=== PATIENT | male | born 1955 | race Caucasian/White ===

== ENCOUNTER 2020-04-27 09:40 | Emergency (ER) | payer OTHER ==
[~2020-04-27] VITALS: Ht 170.2 cm; Wt 63.0 kg
[2020-04-27] MEDS ORDERED: ASPIRIN 81MG TABLET PO ONE (10:30)
[2020-04-27] MEDS ORDERED: NITROGLYCERIN 0.4MG TABLET SL SL PRN (10:30)
[2020-04-27 10:33] LABS: BASOPHILS % 0.3 % (0.0-2.0); EOSINOPHILS % 0.8 % (0.0-5.0); HEMATOCRIT. 45.4 % (42.0-52.0); HEMOGLOBIN. 15.7 g/dL (14.0-18.0); LYMPHOCYTES % 11.1 % (20.0-50.0); MEAN CORPUSCULAR HEMOGLOBIN 31.9 pg (28.0-32.0); MEAN CORPUSCULAR VOLUME 92.1 fL (80.0-94.0); MEAN PLATELET VOLUME 8.4 fl (7.4-10.4); MONOCYTES % 6.9 % (2.0-8.0); NEUTROPHILS % 80.9 % (40.0-76.0); PLATELET 228 x1000/uL (130-400); RED BLOOD CELL COUNT 4.93 mill/uL (4.7-6.1); RED CELL DISTRIBUTION WIDTH 13.2 % (11.6-14.6)
[2020-04-27 10:39] LABS: CHLORIDE 106 mEq/L (98-107)
[2020-04-27 14:29] VITALS: BP 126/80
== END 2020-04-27 14:39 | disposition short-term general hospital (02) ==
LOC: ER 09:49 → CANBEDREQ 16:47
DX: I20.0 Unstable angina (principal); I10 Essential (primary) hypertension; Z86.73 Personal history of transient ischemic attack (TIA), and cerebral infarction without residual deficits
CPT/HCPCS: 36415; 71045; 80053; 83880; 84484; 85025; 93005; 99285; Z7610

== ENCOUNTER 2024-05-31 12:03 | Inpatient (IN) | payer OTHER, MEDICARE ==
[~2024-05-31] VITALS: Ht 180.3 cm; Wt 61.7 kg
[2024-05-31 12:06] VITALS: O2SAT 97
[2024-05-31] MEDS ORDERED: DICYCLOMINE 10 MG/5 ML ORAL SYR PO STA (12:32)
[2024-05-31 12:35] LABS: BASOPHILS % 0.7 % (0.0-2.0); EOSINOPHILS % 1.6 % (0.0-5.0); HEMATOCRIT. 41.3 % (42.0-52.0); HEMOGLOBIN. 13.9 g/dL (14.0-18.0); MEAN CORPUSCULAR HEMOGLOBIN 31.1 pg (28.0-32.0); MEAN CORPUSCULAR HGB CONC 33.7 g/dL (31.0-37.0); MEAN CORPUSCULAR VOLUME 92.3 fL (80.0-94.0); MEAN PLATELET VOLUME 8.1 fl (7.4-10.4); MONOCYTES % 9.2 % (2.0-8.0); NEUTROPHILS % 68.5 % (40.0-76.0); PLATELET 227 x1000/uL (130-400); RED BLOOD CELL COUNT 4.48 mill/uL (4.7-6.1); RED CELL DISTRIBUTION WIDTH 13.6 % (11.6-14.6)
[2024-05-31] MEDS: ASPIRIN 81MG TABLET PO ONE (12:38)
[2024-05-31 12:43] LABS: CHLORIDE 106 mEq/L (98-107); POTASSIUM 4.2 mEq/L (3.5-5.1); SODIUM 140 mEq/L (136-145)
[2024-05-31 12:44] LABS: CALCIUM 9.3 mg/dL (8.7-10.4); CARBON DIOXIDE 31 mEq/L (21-32)
[2024-05-31 12:49] LABS: CREATININE 0.9 mg/dL (0.6-1.3); GLUCOSE 108 mg/dL (70-105); UREA NITROGEN BLOOD 14 mg/dL (9-23)
[2024-05-31] MEDS: MAGNESIUM/ALUMINUM HYDROXIDE/SIMETHICONE 30ML UDC PO STA (12:52)
[2024-05-31] MEDS: ONDANSETRON 4MG ODT PO STA (12:53)
[2024-05-31 12:54] LABS: TROPONIN I HIGH SENSITIVITY < 4 ng/L (3.0-53)
[2024-05-31] MEDS: FAMOTIDINE 20MG TABLET PO ONE (12:54)
[2024-05-31] MEDS: DICYCLOMINE HCL 10MG CAPSULE PO NR (12:55)
[2024-05-31 13:00] LABS: ALANINE AMINOTRANSFERASE 12 IU/L (10-49); ALBUMIN 4.3 g/dL (3.2-4.8); ASPARTATE AMINOTRANSFERASE 19 IU/L (<34); BILIRUBIN DIRECT 0.2 mg/dL (<=3.0); BILIRUBIN TOTAL 0.6 mg/dL (0.1-1.0); PROTEIN TOTAL 7.2 g/dL (6.0-8.3)
[2024-05-31 15:34] LABS: TROPONIN I HIGH SENSITIVITY < 4 ng/L (3.0-53)
[2024-05-31] MEDS ORDERED: MAGNESIUM/ALUMINUM HYDROXIDE/SIMETHICONE 30ML UDC PO PRN (18:45)
[2024-05-31] MEDS ORDERED: ACETAMINOPHEN 325MG TABLET PO PRN ×2 (18:45)
[2024-05-31] MEDS ORDERED: CLONIDINE 0.1MG TABLET PO PRN (18:45)
[2024-05-31] MEDS ORDERED: ONDANSETRON HCL 4MG/2ML INJ IV PRN (18:45)
[2024-05-31] MEDS ORDERED: IPRATROPIUM/ALBUTEROL 0.5-3(2.5)MG/3ML NEB HHN PRN (18:45)
[2024-05-31] MEDS ORDERED: KETOROLAC 15MG/ML VIAL IM PRN (19:00)
[2024-05-31] MEDS ORDERED: KETOROLAC 10MG TABLET PO PRN (19:00)
[2024-05-31] MEDS ORDERED: KETOROLAC 15MG/ML VIAL IV PRN (19:00)
[2024-05-31] MEDS: ENOXAPARIN 40MG/0.4ML SYR SUBCUT SCH (20:00)
[2024-05-31 21:07] LABS: IRON 65 ug/dL (65-175)
[2024-05-31 21:10] LABS: PHOSPHORUS 3.6 mg/dL (2.5-4.9)
[2024-05-31 21:14] LABS: FOLIC ACID (FOLATE) SERUM > 20.00 ng/mL (>5.38); VITAMIN B12 SERUM 674 pg/mL (211-911)
[2024-05-31 21:15] LABS: FERRITIN 73 ng/mL (22-322)
[2024-06-01] VITALS: BP 110/70; PULSE 60; RESP 20; TEMP 97.5
[2024-06-01 03:28] VITALS: BP 118/77; PULSE 77; RESP 20; TEMP 98.2
[2024-06-01] MEDS: PANTOPRAZOLE 40MG DR TABLET PO SCH (05:16)
[2024-06-01 07:58] LABS: BASOPHILS % 0.7 % (0.0-2.0); EOSINOPHILS % 2.7 % (0.0-5.0); HEMATOCRIT. 42.5 % (42.0-52.0); HEMOGLOBIN. 14.3 g/dL (14.0-18.0); LYMPHOCYTES % 21.1 % (20.0-50.0); MEAN CORPUSCULAR HEMOGLOBIN 31.2 pg (28.0-32.0); MEAN CORPUSCULAR HGB CONC 33.7 g/dL (31.0-37.0); MEAN CORPUSCULAR VOLUME 92.6 fL (80.0-94.0); MEAN PLATELET VOLUME 8.3 fl (7.4-10.4); MONOCYTES % 9.1 % (2.0-8.0); NEUTROPHILS % 66.4 % (40.0-76.0); PLATELET 219 x1000/uL (130-400); RED BLOOD CELL COUNT 4.59 mill/uL (4.7-6.1); WHITE BLOOD COUNT 6.3 x1000/uL (4.5-11.0)
[2024-06-01 08:00] VITALS: BP 117/75; PULSE 74; RESP 22; TEMP 96.6
[2024-06-01 08:06] LABS: CHLORIDE 106 mEq/L (98-107); POTASSIUM 4.5 mEq/L (3.5-5.1); SODIUM 140 mEq/L (136-145)
[2024-06-01 08:07] LABS: CALCIUM 9.3 mg/dL (8.7-10.4); CARBON DIOXIDE 28 mEq/L (21-32)
[2024-06-01 08:12] LABS: CREATININE 0.9 mg/dL (0.6-1.3); GLUCOSE 90 mg/dL (70-105); TRIGLYCERIDE 64 mg/dL (0-150); UREA NITROGEN BLOOD 13 mg/dL (9-23)
[2024-06-01 08:13] LABS: LDL CHOLESTEROL 91 mg/dL (5-100)
[2024-06-01 08:14] LABS: CHOLESTEROL 143 mg/dL (<200); HDL CHOLESTEROL 45 mg/dL (>55); THYROID STIMULATING HORMONE 2.38 uIU/mL (0.55-4.78)
[2024-06-01] MEDS: ASPIRIN 81MG EC TABLET PO SCH (09:36)
[2024-06-01] MEDS: LISINOPRIL 5MG TABLET PO SCH (09:37)
[2024-06-01 12:00] VITALS: BP 108/76; PULSE 74; RESP 18; TEMP 98.9
[2024-06-01 16:00] VITALS: BP 117/80; PULSE 77; RESP 16; TEMP 98.4
[2024-06-01 16:57] LABS: BASOPHILS % 1.2 % (0.0-2.0); EOSINOPHILS % 2.3 % (0.0-5.0); HEMATOCRIT. 44.1 % (42.0-52.0); HEMOGLOBIN. 14.8 g/dL (14.0-18.0); LYMPHOCYTES % 28.6 % (20.0-50.0); MEAN CORPUSCULAR HEMOGLOBIN 31.3 pg (28.0-32.0); MEAN CORPUSCULAR HGB CONC 33.6 g/dL (31.0-37.0); MEAN PLATELET VOLUME 8.7 fl (7.4-10.4); MONOCYTES % 9.9 % (2.0-8.0); PLATELET 249 x1000/uL (130-400); RED BLOOD CELL COUNT 4.74 mill/uL (4.7-6.1); RED CELL DISTRIBUTION WIDTH 13.8 % (11.6-14.6); WHITE BLOOD COUNT 6.6 x1000/uL (4.5-11.0)
[2024-06-01 17:08] LABS: PARTIAL THROMBOPLASTIN TIME 27.1 sec (23.4-31.0); PROTHROMBIN TIME 10.9 sec (9.6-11.0)
[2024-06-01 17:11] LABS: CREATINE KINASE MB FRACTION 0.8 ng/mL (0.5-3.6)
[2024-06-01 18:40] LABS: CHLORIDE 104 mEq/L (98-107); POTASSIUM 4.4 mEq/L (3.5-5.1); SODIUM 138 mEq/L (136-145)
[2024-06-01 18:41] LABS: CALCIUM 9.4 mg/dL (8.7-10.4); CARBON DIOXIDE 27 mEq/L (21-32)
[2024-06-01 18:46] LABS: CREATININE 0.9 mg/dL (0.6-1.3); GLUCOSE 82 mg/dL (70-105); UREA NITROGEN BLOOD 13 mg/dL (9-23)
[2024-06-01 18:48] LABS: PHOSPHORUS 4.3 mg/dL (2.5-4.9)
[2024-06-01 20:00] VITALS: BP 127/87; PULSE 83; RESP 19; TEMP 97.8
[2024-06-01 20:23] LABS: TROPONIN I HIGH SENSITIVITY < 4 ng/L (3.0-53)
[2024-06-02] VITALS: BP 107/74; PULSE 72; RESP 20; TEMP 97.2
[2024-06-02 00:29] LABS: CREATINE KINASE MB FRACTION 0.7 ng/mL (0.5-3.6)
[2024-06-02 00:32] LABS: TROPONIN I HIGH SENSITIVITY < 4 ng/L (3.0-53)
[2024-06-02 04:00] VITALS: BP 115/66; PULSE 71; RESP 18; TEMP 97.4
[2024-06-02 08:00] VITALS: BP 130/96; PULSE 80; RESP 18; TEMP 98.9
[2024-06-02 08:23] LABS: CHLORIDE 106 mEq/L (98-107); POTASSIUM 4.3 mEq/L (3.5-5.1); SODIUM 136 mEq/L (136-145)
[2024-06-02 08:24] LABS: CALCIUM 9.4 mg/dL (8.7-10.4); CARBON DIOXIDE 27 mEq/L (21-32)
[2024-06-02 08:26] LABS: CREATINE KINASE MB FRACTION 0.6 ng/mL (0.5-3.6)
[2024-06-02 08:29] LABS: CREATININE 0.9 mg/dL (0.6-1.3); GLUCOSE 81 mg/dL (70-105); UREA NITROGEN BLOOD 16 mg/dL (9-23)
[2024-06-02 08:41] LABS: TROPONIN I HIGH SENSITIVITY < 4 ng/L (3.0-53)
[2024-06-02 10:43] LABS: T4 FREE 1.23 ng/dL (0.89-1.76)
[2024-06-02] MEDS: METOPROLOL TARTRATE 25MG TABLET PO NR (11:12)
[2024-06-02 12:00] VITALS: BP_SYST 106; BP_SYST 126; BP_DIAS 72; BP_DIAS 85; PULSE 63; PULSE 85; RESP 16; RESP 19; TEMP 98.4
[2024-06-02] MEDS: NITROGLYCERIN SPRAY/4.9GM CAN TL ONE (14:40)
[2024-06-02] MEDS ORDERED: IOHEXOL-350 100 ML BOTTLE ONE (14:55)
[2024-06-02 16:00] VITALS: BP 99/59; PULSE 65; RESP 20; TEMP 97.8
[2024-06-02] MEDS ORDERED: LISI-186 PO (19:20)
[2024-06-02] MEDS ORDERED: ASPI-1406 PO (19:23)
[2024-06-02] MEDS ORDERED: IBUP-2028 MT (19:23)
[2024-06-02] MEDS ORDERED: LIP40 PO (19:23)
[2024-06-02 20:00] VITALS: BP 118/75; PULSE 79; RESP 18; TEMP 97.2
[2024-06-02] MEDS ORDERED: ATORVASTATIN CALCIUM 40MG TABLET PO SCH (21:00)
[2024-06-03] MEDS ORDERED: FAMOTIDINE 20MG TABLET PO SCH (09:00)
== END 2024-06-02 19:31 | disposition home or self-care (01) | DRG 206 ==
LOC: ER 12:03 → EDBEDREQTM 17:12 → EDBEDREQ 17:12 → 5WST 18:09 → 7EST 21:27
PROVIDERS: ADMIT Internal Medicine; ATTEND Internal Medicine
DX: M94.0 Chondrocostal junction syndrome [Tietze] (principal); I24.9 Acute ischemic heart disease, unspecified; I69.351 Hemiplegia and hemiparesis following cerebral infarction affecting right dominant side; K21.9 Gastro-esophageal reflux disease without esophagitis; I10 Essential (primary) hypertension; D63.8 Anemia in other chronic diseases classified elsewhere
CPT/HCPCS: 36415; 71045; 75571; 80048; 80061; 80076; 82550; 82553; 82607; 82728; 82746; 83036; 83540; 83735; 83880; 84100; 84439; 84443; 84484; 85025; 93005; 93306; 93970; 99285; J1650; Q0162; Q9967